=== PATIENT | female | born 2000 | race Caucasian/White ===

== ENCOUNTER 2020-08-23 19:49 | Emergency (ER) | payer OTHER ==
[~2020-08-23 19:49] MED LIST: CYCLOBENZAPRINE10 MG PO; TORADOL 10 MG T10 MG PO
[2020-08-23 22:01] LABS: HEMOGLOBIN 15.9 gm/dl (12.3-15.3); RED BLOOD COUNT 5.43 M/UL (4.00-5.10); WHITE BLOOD COUNT 12.3 K/UL (4.5-11.0)
[2020-08-23 22:21] LABS: BUN/CREATININE RATIO 11 (0-10)
[2020-08-23] MEDS ORDERED: CEFUROXIME500 MG PO (23:10)
[2020-08-23] MEDS ORDERED: DIFLUCAN150 MG PO (23:10)
== END 2020-08-23 23:40 | disposition home or self-care (01) ==
LOC: ER1 19:49
PROVIDERS: Physician Assistant
DX: N93.9 Abnormal uterine and vaginal bleeding, unspecified (principal); N39.0 Urinary tract infection, site not specified; B37.9 Candidiasis, unspecified
CPT/HCPCS: 80053; 81001; 84703; 85025; 87086; 99284